=== PATIENT | male | born 1940 | race Caucasian/White ===

== ENCOUNTER 2021-01-17 13:00 | Emergency (ER) | payer SELFPAY ==
[~2021-01-17 13:00] MED LIST: US Gall Bladder
[2021-01-17 13:59] LABS: HEMOGLOBIN 13.9 gm/dl (14.0-17.5); RED BLOOD COUNT 4.76 M/UL (4.20-5.50); WHITE BLOOD COUNT 5.1 K/UL (4.5-11.0)
[2021-01-17 14:30] LABS: BUN/CREATININE RATIO 7 (0-10)
[2021-01-17] MEDS ORDERED: PROAIR HFA8.5 GM INH (17:28)
[2021-01-18] MEDS ORDERED: CARVEDILOL3.125 MG PO (10:42)
[2021-01-18] MEDS ORDERED: ALFUZOSIN HCL E10 MG PO (10:42)
[2021-01-18] MEDS ORDERED: DONEPEZIL HCL10 MG PO (10:43)
[2021-01-18] MEDS ORDERED: VASOTEC10 MG PO (10:43)
[2021-01-18] MEDS ORDERED: GABAPENTIN300 MG PO (10:44)
[2021-01-18] MEDS ORDERED: FINASTERIDE5 MG PO (10:44)
[2021-01-18] MEDS ORDERED: HYDROXYZINE HCL25 MG PO (10:45)
[2021-01-18] MEDS ORDERED: NAMENDA10 MG PO (10:46)
[2021-01-18] MEDS ORDERED: MONTELUKAST SOD10 MG PO (10:46)
[2021-01-18] MEDS ORDERED: TAMSULOSIN HCL0.4 MG PO (10:47)
[2021-01-18] MEDS ORDERED: TOLTERODINE TART2 MG PO (10:48)
== END 2021-01-17 19:40 | disposition home or self-care (01) ==
LOC: ER1 13:00
PROVIDERS: Physician Assistant
DX: U07.1 COVID-19 (principal); Z23 Encounter for immunization; J40 Bronchitis, not specified as acute or chronic; S09.90XA Unspecified injury of head, initial encounter; S16.1XXA Strain of muscle, fascia and tendon at neck level, initial encounter; F03.90 Unspecified dementia, unspecified severity, without behavioral disturbance, psychotic disturbance, mood disturbance, and anxiety; I10 Essential (primary) hypertension; F17.220 Nicotine dependence, chewing tobacco, uncomplicated; Z88.6 Allergy status to analgesic agent; Z90.49 Acquired absence of other specified parts of digestive tract; W01.10XA Fall on same level from slipping, tripping and stumbling with subsequent striking against unspecified object, initial encounter
CPT/HCPCS: 0240U; 70450; 71045; 72125; 80053; 82550; 82553; 83874; 84484; 85025; 93005; 99284; M0243

== ENCOUNTER 2021-01-18 07:18 | Inpatient (IN) | payer MEDICARE ==
[~2021-01-18] VITALS: Ht 188 cm; Wt 75.0 kg
[~2021-01-18 07:18] MED LIST changes: +PROAIR HFA8.5 GM INH
[2021-01-18 08:10] LABS: HEMOGLOBIN 14.1 gm/dl (14.0-17.5); RED BLOOD COUNT 4.62 M/UL (4.20-5.50); WHITE BLOOD COUNT 6.2 K/UL (4.5-11.0)
[2021-01-18 08:30] LABS: BUN/CREATININE RATIO 13 (0-10)
[2021-01-18] MEDS ORDERED: CARVEDILOL3.125 MG PO (10:42)
[2021-01-18] MEDS ORDERED: ALFUZOSIN HCL E10 MG PO (10:42)
[2021-01-18] MEDS ORDERED: DONEPEZIL HCL10 MG PO (10:43)
[2021-01-18] MEDS ORDERED: VASOTEC10 MG PO (10:43)
[2021-01-18] MEDS ORDERED: FINASTERIDE5 MG PO (10:44)
[2021-01-18] MEDS ORDERED: GABAPENTIN300 MG PO (10:44)
[2021-01-18] MEDS ORDERED: HYDROXYZINE HCL25 MG PO (10:45)
[2021-01-18] MEDS ORDERED: NAMENDA10 MG PO (10:46)
[2021-01-18] MEDS ORDERED: MONTELUKAST SOD10 MG PO (10:46)
[2021-01-18] MEDS ORDERED: TAMSULOSIN HCL0.4 MG PO (10:47)
[2021-01-18] MEDS ORDERED: TOLTERODINE TART2 MG PO (10:48)
[2021-01-19 03:50] LABS: HEMOGLOBIN 13.3 gm/dl (14.0-17.5); RED BLOOD COUNT 4.41 M/UL (4.20-5.50); WHITE BLOOD COUNT 4.8 K/UL (4.5-11.0)
[2021-01-19 04:19] LABS: BUN/CREATININE RATIO 14 (0-10)
[2021-01-22 06:15] LABS: HEMOGLOBIN 13.3 gm/dl (14.0-17.5); RED BLOOD COUNT 4.61 M/UL (4.20-5.50); WHITE BLOOD COUNT 4.4 K/UL (4.5-11.0)
[2021-01-22 06:43] LABS: BUN/CREATININE RATIO 12 (0-10)
[2021-01-23 04:25] LABS: BUN/CREATININE RATIO 15 (0-10)
--- NOTE | 2021-01-24 14:41 | NUR ---
SPOKE WITH YUMIKO AND Juliano [facility] TO LET HER KNOW PATIENT IS BEING DISCHARGED TODAY, AND TO GIVE HER REPORT ON THE PATIENT.
== END 2021-01-24 14:52 | disposition home health service (06) | DRG 178 ==
LOC: ER1 07:18 → CDU 09:20 → MED SURG 4 09:20 → CDU 09:20 → MED SURG 4 15:06
PROVIDERS: Emergency Medicine; Internal Medicine; ADMIT Internal Medicine Infectious Disease
PROC: 8E0ZXY6 Isolation (ICD-10-PCS; principal; 2021-01-19)
DX: U07.1 COVID-19 (principal); A08.39 Other viral enteritis; J98.11 Atelectasis; I10 Essential (primary) hypertension; G30.9 Alzheimer's disease, unspecified; F02.80 Dementia in other diseases classified elsewhere, unspecified severity, without behavioral disturbance, psychotic disturbance, mood disturbance, and anxiety; W18.30XA Fall on same level, unspecified, initial encounter; N40.0 Benign prostatic hyperplasia without lower urinary tract symptoms; S13.9XXA Sprain of joints and ligaments of unspecified parts of neck, initial encounter; R29.6 Repeated falls; Z87.891 Personal history of nicotine dependence; Z90.49 Acquired absence of other specified parts of digestive tract; Z98.890 Other specified postprocedural states; Z82.49 Family history of ischemic heart disease and other diseases of the circulatory system; Z83.3 Family history of diabetes mellitus; Z88.5 Allergy status to narcotic agent; Z88.8 Allergy status to other drugs, medicaments and biological substances
CPT/HCPCS: 36415; 36600; 70450; 71045; 72125; 73080; 80048; 80053; 81001; 82550; 82553; 82803; 83735; 83874; 84132; 84443; 84484; 85025; 90471; 90715; 93005; 94640; 94664; 94760; 97162; 97165; 99285; J1650; J3480; J7121